=== PATIENT | female | born 1995 | race Caucasian/White ===

== ENCOUNTER 2023-02-12 14:29 | Outpatient (CLI) | payer BC, SELFPAY | END 2023-02-12 14:30 | disposition home or self-care (01) | PROVIDERS: PCP Physician Assistant Medical; Visit Provider Physician Assistant Medical | DX: R03.0 Elevated blood-pressure reading, without diagnosis of hypertension (principal); E66.9 Obesity, unspecified; F32.A Depression, unspecified; F41.9 Anxiety disorder, unspecified | CPT/HCPCS: 82088; 84244; 84443; 87086 ==

== ENCOUNTER 2023-07-23 13:13 | Outpatient (CLI) | payer BC, SELFPAY ==
[2023-07-23 23:44] LABS: Chlamydia DNA Amplified* NOT DETECTED (No Detected); GC DNA Amplified* NOT DETECTED (No Detected)
== END 2023-07-23 13:14 | disposition home or self-care (01) ==
LOC: LKVREF 13:13
PROVIDERS: PCP Physician Assistant Medical; Visit Provider Physician Assistant Medical
DX: Z00.00 Encounter for general adult medical examination without abnormal findings (principal); Z11.3 Encounter for screening for infections with a predominantly sexual mode of transmission
CPT/HCPCS: 87491; 87591

== ENCOUNTER 2023-07-27 08:38 | Outpatient (CLI) | payer BC, SELFPAY | END 2023-07-27 08:39 | disposition home or self-care (01) | LOC: NFLDREF 07-31 09:34 | PROVIDERS: PCP Physician Assistant Medical; Referring Provider Physician Assistant Medical; Visit Provider Physician Assistant Medical | DX: Z00.00 Encounter for general adult medical examination without abnormal findings (principal); E66.9 Obesity, unspecified; R03.0 Elevated blood-pressure reading, without diagnosis of hypertension; Z13.6 Encounter for screening for cardiovascular disorders; Z11.3 Encounter for screening for infections with a predominantly sexual mode of transmission | CPT/HCPCS: 80048; 80061 ==

== ENCOUNTER 2024-09-08 08:48 | Outpatient (CLI) | payer BC, SELFPAY | END 2024-09-08 08:49 | disposition home or self-care (01) | PROVIDERS: PCP Physician Assistant Medical; Visit Provider Physician Assistant Medical | DX: Z00.00 Encounter for general adult medical examination without abnormal findings (principal); R03.0 Elevated blood-pressure reading, without diagnosis of hypertension; E66.9 Obesity, unspecified; F31.9 Bipolar disorder, unspecified; Z78.9 Other specified health status | CPT/HCPCS: 80061; 82306; 82947; 84443 ==

== ENCOUNTER 2025-05-20 11:12 | Outpatient (CLI) | payer BC, SELFPAY | END 2025-05-20 11:13 | disposition home or self-care (01) | PROVIDERS: PCP Physician Assistant Medical; Visit Provider Physician Assistant Medical | DX: R42 Dizziness and giddiness (principal); L30.9 Dermatitis, unspecified | CPT/HCPCS: 80053; 82306; 82607; 82728; 82746; 82784; 83520; 84443; 86231; 86258; 86364; 86376 ==